=== PATIENT | male | born 1950 | race Hispanic/Latino ===

== ENCOUNTER → 2022-07-27 | Outpatient (CLI) | payer MEDICARE ==
[~2022-07-27] MED LIST: GADOTERATE MEGLUMINE 10 MMOL/20 ML VIAL IV ONE
== END | disposition home or self-care (01) ==
LOC: RAH 14:13
PROVIDERS: ATTEND Student in an Organized Health Care Education/Training Program
DX: M47.816 Spondylosis without myelopathy or radiculopathy, lumbar region (principal); M48.061 Spinal stenosis, lumbar region without neurogenic claudication; M41.86 Other forms of scoliosis, lumbar region; M51.26 Other intervertebral disc displacement, lumbar region
CPT/HCPCS: 72158; A9575

== ENCOUNTER 2022-09-07 11:00 | Observation (INO) | payer MEDICARE ==
[~2022-09-07] VITALS: Ht 170.2 cm; Wt 89.4 kg
[2022-09-07 13:17] LABS: BASOPHILS % (AUTO) 0.9 % (0.0-5.0); EOSINOPHILS % (AUTO) 1.7 % (0.0-8.0); HEMATOCRIT 43.6 % (42-54); LYMPHOCYTES % (AUTO) 40.9 % (21.0-51.0); MEAN CORPUSCULAR HEMOGLOBIN 29.7 pg (27.0-33.0); MEAN CORPUSCULAR HGB CONC 33.3 g/dL (32.0-36.0); MEAN CORPUSCULAR VOLUME 89.3 fL (79-99); MONOCYTES % (AUTO) 6.4 % (3.0-13.0); NEUTROPHILS % (AUTO) 49.9 % (40.0-77.0); PLATELET COUNT (AUTO) 248 K/uL (130-400); RED BLOOD CELL COUNT(AUTO) 4.88 MIL/uL (4.50-6.20); RED CELL DISTRIBUTION WIDTH 12.8 % (11.0-15.5); WHITE BLOOD COUNT (AUTO) 6.5 K/uL (4.8-10.8)
[2022-09-07 13:24] LABS: CREATININE 1.1 mg/dL (0.5-1.5); POTASSIUM 4.3 mmol/L (3.5-5.1)
[2022-09-07 13:25] VITALS: BP 143/78
[2022-09-07] MEDS ORDERED: DUTA0.5C37 PO (13:27)
[2022-09-07] MEDS ORDERED: GABA300C PO (13:27)
[2022-09-07] MEDS ORDERED: TAMS-1 PO (13:27)
[2022-09-09] VITALS (25 sets, daily range): BP systolic 108–135; BP diastolic 59–77
[2022-09-09] MEDS ORDERED: DEXAMETHASONE SOD PHOSPHATE 10MG/ML 1ML VIAL ONE ×2 (07:01→07:08)
[2022-09-09] MEDS ORDERED: SUCCINYLCHOLINE 200MG/10ML SYR ONE (07:01)
[2022-09-09] MEDS ORDERED: LIDOCAINE PF 100MG/5ML (2%) SYRINGE 5ML ONE (07:01)
[2022-09-09] MEDS ORDERED: NEOSTIGMINE 5MG/5ML SYR IV ONE (07:02)
[2022-09-09] MEDS ORDERED: MIDAZOLAM HCL 1 MG/ML 2ML VIAL ONE ×2 (07:02→08:14)
[2022-09-09] MEDS ORDERED: ONDANSETRON 4MG INJ ONE ×2 (07:02→07:09)
[2022-09-09] MEDS ORDERED: ROCURONIUM 10MG/1ML SYR 10 MG/ML ML ONE ×2 (07:02→09:41)
[2022-09-09] MEDS ORDERED: GLYCOPYRROLATE 1 MG/5 ML SYRINGE ONE (07:02)
[2022-09-09] MEDS ORDERED: PROPOFOL 10 MG/ML 20ML VIAL IV ONE (07:02)
[2022-09-09] MEDS ORDERED: FENTANYL CITRATE PF 50 MCG/1 ML 2ML VIAL ONE ×3 (07:03→12:37)
[2022-09-09] MEDS ORDERED: LACTATED RINGERS 1000ML 1,000 ML IV ONE (07:04)
[2022-09-09] MEDS ORDERED: CEFAZOLIN SODIUM 2 GM VIAL ONE (07:04)
[2022-09-09] MEDS ORDERED: OXYMETAZOLINE HCL SPRAY 15 ML BOTTLE ONE (07:06)
[2022-09-09] MEDS ORDERED: ARTIFICIAL TEARS 3.5 GM OINTMENT ONE (07:09)
[2022-09-09] MEDS ORDERED: CEFAZOLIN SODIUM 1 GM VIAL ONE ×2 (07:13→12:25)
[2022-09-09] MEDS ORDERED: MORPHINE PF 100MG/10ML AMP IV ONE (07:14)
[2022-09-09] MEDS ORDERED: THROMBIN-JMI 20000 UNIT KIT TP ONE (07:14)
[2022-09-09] MEDS ORDERED: CEFAZOLIN SODIUM 2 GM VIAL IVPB ONE (09:00)
[2022-09-09] MEDS: BUPIVACAINE/EPI/PF 0.25% 30ML VIAL IJ SCH ×2 (09:32→14:43)
[2022-09-09] MEDS ORDERED: PHENYLEPHRINE HCL 10 MG/ML 1ML VIAL IV ONE ×2 (10:38→10:40)
[2022-09-09] MEDS ORDERED: GENTAMICIN SULFATE 80 MG/2 ML VIAL ONE (11:15)
[2022-09-09] MEDS ORDERED: GENTAMICIN SULFATE 80 MG/2 ML VIAL IM ONE (11:20)
[2022-09-09] MEDS: CEFAZOLIN SODIUM 1 GM VIAL IVPB SCH ×2 (13:30→19:38)
[2022-09-09] MEDS: LACTATED RINGERS 1000ML 1,000 ML IV SCH (13:30)
[2022-09-09] MEDS ORDERED: MORPHINE 2 MG SYG IVP PRN (13:30)
[2022-09-09] MEDS ORDERED: HYDROCODONE/ACETAMINOPHEN 5/325 MG TAB PO PRN (13:30)
[2022-09-09] MEDS ORDERED: 0.9%NACL 10ML VIAL IVP PRN (13:30)
[2022-09-09] MEDS ORDERED: PROMETHAZINE HCL 25 MG/ML 1ML AMPULE IM PRN (13:30)
[2022-09-09] MEDS: DEXAMETHASONE SOD PHOSPHATE 4 MG/ML 1ML VIAL IVP SCH ×2 (13:30→19:37)
[2022-09-09] MEDS ORDERED: MEPERIDINE-PF 25 MG/ML SYG ONE ×2 (13:49→14:04)
[2022-09-09] MEDS ORDERED: FINASTERIDE 5 MG TABLET PO SCH (21:00)
[2022-09-09] MEDS ORDERED: TAMSULOSIN HCL 0.4 MG CAP.ER.24H PO SCH (21:00)
[2022-09-09] MEDS ORDERED: GABAPENTIN 300 MG CAPSULE PO SCH (21:00)
[2022-09-10] MEDS: DEXAMETHASONE SOD PHOSPHATE 4 MG/ML 1ML VIAL IVP SCH ×2 (00:55→08:14)
[2022-09-10] MEDS: LACTATED RINGERS 1000ML 1,000 ML IV SCH (02:50)
[2022-09-10] MEDS: CEFAZOLIN SODIUM 1 GM VIAL IVPB SCH ×2 (04:31→13:30)
[2022-09-10 05:39] VITALS: BP 114/64
[2022-09-10 08:00] VITALS: BP 103/55
[2022-09-10] MEDS ORDERED: TAMSULOSIN HCL 0.4 MG CAP.ER.24H PO SCH (10:30)
[2022-09-10] MEDS ORDERED: LIDOCAINE HCL 2% PF 20 ML JEL DISP.SYRIN MM ONE (11:35)
== END 2022-09-10 15:20 | disposition home or self-care (01) ==
LOC: DAHIP 09-09 06:21 → EDSTATUS 09-09 12:00 → 4BH 09-09 14:09
PROVIDERS: ADMIT Neurological Surgery; ATTEND Neurological Surgery
DX: M48.07 Spinal stenosis, lumbosacral region (principal); Z20.822 Contact with and (suspected) exposure to COVID-19; E78.5 Hyperlipidemia, unspecified; Z79.899 Other long term (current) drug therapy
CPT/HCPCS: 80048; 85025; 87426; 36415; 71045; 63047; 63048 ×4; 96365; 96375; 72020; 96376; A6260; J1100 ×5; G0378 ×26; A4663 ×2; J7120 ×2; A4344; J3010 ×3; J0690 ×5; J0330; J3490 ×2; J2710; J2001; J1580 ×2; J2250 ×2; J2704; J2274; J2405 ×2; J2175 ×2; J2370 ×2; A4649; A4215; A4223; A4222; A4221; A4600

== ENCOUNTER → 2022-11-26 | Outpatient (CLI) | payer MEDICARE ==
[~2022-11-26] MED LIST changes: +DUTA0.5C37 PO; +GABA300C PO; -GADOTERATE MEGLUMINE 10 MMOL/20 ML VIAL IV ONE; +TAMS-1 PO
== END | disposition home or self-care (01) ==
LOC: RAH 11:18
PROVIDERS: ATTEND Physical Medicine & Rehabilitation
DX: M47.817 Spondylosis without myelopathy or radiculopathy, lumbosacral region (principal); M48.07 Spinal stenosis, lumbosacral region; Z98.890 Other specified postprocedural states
CPT/HCPCS: 72170; 73522

== ENCOUNTER → 2022-12-30 | Outpatient (CLI) | payer MEDICARE ==
[2022-12-30 17:31] LABS: CREATININE 0.9 mg/dL (0.5-1.5)
== END | disposition home or self-care (01) ==
LOC: LAB 16:58
PROVIDERS: ATTEND Neurological Surgery
DX: M48.062 Spinal stenosis, lumbar region with neurogenic claudication (principal)
CPT/HCPCS: 36415; 82565; 84520

== ENCOUNTER → 2023-01-04 | Outpatient (CLI) | payer MEDICARE ==
[~2023-01-04] MED LIST changes: +GADOTERATE MEGLUMINE 10 MMOL/20 ML VIAL IV ONE
== END | disposition home or self-care (01) ==
LOC: RAH 15:01
PROVIDERS: ATTEND Neurological Surgery
DX: M47.817 Spondylosis without myelopathy or radiculopathy, lumbosacral region (principal); M48.062 Spinal stenosis, lumbar region with neurogenic claudication; M51.37 Other intervertebral disc degeneration, lumbosacral region; Z98.890 Other specified postprocedural states
CPT/HCPCS: 72158; A9575

== ENCOUNTER → 2023-05-05 | Outpatient (CLI) | payer MEDICARE ==
[~2023-05-05] MED LIST changes: -GADOTERATE MEGLUMINE 10 MMOL/20 ML VIAL IV ONE
== END | disposition home or self-care (01) ==
LOC: RAH 10:34
PROVIDERS: ATTEND Physical Medicine & Rehabilitation
DX: M47.26 Other spondylosis with radiculopathy, lumbar region (principal); M71.38 Other bursal cyst, other site; M48.061 Spinal stenosis, lumbar region without neurogenic claudication; M25.70 Osteophyte, unspecified joint
CPT/HCPCS: 72114

== ENCOUNTER → 2024-08-15 | Outpatient (CLI) | payer MEDICARE ==
[~2024-08-15] MED LIST changes: +GADOTERATE MEGLUMINE 10 MMOL/20 ML VIAL IV ONE; -TAMS-1 PO; +TAMS-55 PO
--- NOTE | 2024-08-15 15:23 | HMCIMG ---
Dj Exam Type: MR SPINAL CANAL, LUMBAR WO CON Clinical Information: RADICULOPATHY LUMBAR REGION Comparison: None Findings: Moderate to severe spondylitic changes with multilevel Modic endplate type degenerative changes. Disc protrusions at all level causing neural foramina narrowing and nerve root impingement bilaterally at all levels. No acute fractures or dislocations. Spasm. IMPRESSION: Extensive degenerative changes.
--- NOTE | 2024-08-15 16:15 | HMCIMG ---
Findings: There is normal alignment of the vertebral bodies. There are no fractures. There is facet hypertrophy. There are spondylitic changes. There are no large bulges or herniations. The prevertebral soft tissues are normal. IMPRESSION: Degenerative changes as noted.
== END | disposition home or self-care (01) ==
LOC: RAH 14:28
PROVIDERS: ATTEND Physical Medicine & Rehabilitation
DX: M47.26 Other spondylosis with radiculopathy, lumbar region (principal); M51.16 Intervertebral disc disorders with radiculopathy, lumbar region; M48.061 Spinal stenosis, lumbar region without neurogenic claudication; M46.96 Unspecified inflammatory spondylopathy, lumbar region
CPT/HCPCS: 72148; 72131; A9575

== ENCOUNTER 2024-12-12 15:27 | Observation (INO) | payer MEDICARE ==
[~2024-12-12] VITALS: Ht 170.2 cm; Wt 80.6 kg
[~2024-12-12 15:27] MED LIST changes: -RIVA15TA PO; -RIVA20TA PO
--- NOTE | 2024-12-12 15:55 | ERN ---
ED Note History of Present Illness Stated Complaint: DVT Chief Complaint: Lower Extremity Pain/Injury Time Seen by MD: 15:34 Dictation: PATIENT IS A 74-YEAR-OLD MALE COMING IN TODAY WITH COMPLAINTS OF SWELLING TO THE RIGHT LOWER EXTREMITIES HAD FOR TWO DAYS. NO CLAUDICATION, NO FEVER NO CHILLS NO ERYTHEMA. SAW /[employer] WITH THE ULTRASOUND PERFORMED A DEMONSTRATES A DVT IN THE POPLITEAL VEIN ONLY. DISTAL NEUROVASCULAR CMS INTACT. Allergies: Coded Allergies: No Known Drug Allergies (Unverified Allergy, Unknown, 09/07/22) Home Meds Reported Medications Dutasteride (Dutasteride) 0.5 Mg Capsule, 0.5 MG PO HS, CAP 09/07/22 Tamsulosin HCl (Flomax) 0.4 Mg Cap.er.24h, 0.4 MG PO HS, CAPSULE. 09/07/22 Gabapentin (Neurontin) 300 Mg Capsule, 300 MG PO HS, CAP 09/07/22 Past Medical History Past Medical History: Other Additional Past Medical Hx: BPH Surgical History: None Surgical History Other: INGUINAL HERNIA REPAIR,BPH RN Note Reviewed/Agreed w/PFSH: Yes Review of System Dictation CONSTITUTIONAL: NEGATIVE EXCEPT FOR HPI HEAD/FACE: NEGATIVE EXCEPT FOR HPI EENT: NEGATIVE EXCEPT FOR HPI RESPIRATORY: NEGATIVE EXCEPT FOR HPI GASTROINTESTINAL/ABDOMINAL: NEGATIVE EXCEPT FOR HPI GENITOURINARY: NEGATIVE EXCEPT FOR HPI MUSCULOSKELETAL: NEGATIVE EXCEPT FOR HPI RIGHT LOWER EXTREMITY SWELLING INTEGUMENTARY: NEGATIVE EXCEPT FOR HPI NEUROLOGICAL/PSYCH: NEGATIVE EXCEPT FOR HPI HEMATOLOGIC/LYMPHATIC: NEGATIVE EXCEPT FOR HPI ALL SYSTEMS NEGATIVE, EXCEPT NOTED ABOVE. 13 POINT REVIEW OF SYSTEMS ASSESSED AND ALL NEGATIVE EXCEPT FOR ABOVE. Initial Vital Sign VS Vital Signs Date Time Temp Pulse Resp B/P (MAP) Pulse Ox O2 Delivery O2 Flow Rate FiO2 12/12/24 15:29 98.8 67 18 117/85 98 Room Air 0 Physical Exam Dictation VITAL SIGNS REVIEWED GENERAL APPEARANCE: ALERT, ORIENTED X 3, NO ACUTE DISTRESS, WELL DEVELOPED, NOURISHED. HEAD AND FACE: NON-TRAUMATIC. EYES: PERRL, PINK CONJUNCTIVAS, EYELID NO TRAUMA, ANTERIOR CHAMBER WITH ARCUS SENILIS. EARS: PINNAS INTACT AND NO SIGNS OF TRAUMA OR ERYTHEMA EAR CANALS CLEAR AND NO DISCHARGE TM NO ERYTHEMA NOSE: NO DISCHARGE, NO BLEEDING. OROPHARYNX: MOUTH NORMAL, TONGUE PINK, PHARYNX CLEAR,NO ERYTHEMA, TONSILS NO EXUDATES, NO ABSCESSES NOTED, MUCOUS MEMBRANE MOIST NECK: SUPPLE, NON-TENDER, NO THYROMEGALY, NO MASSES, NO JVD, NO BRUITS BREAST:DEFERRED CHEST:NO TENDERNESS, NO CREPITUS, NO PARADOXICAL MOVEMENT, NO RETRACTIONS LUNGS:CLEAR, WELL-VENTILATED, SYMMETRIC, NO RALES, NO WHEEZING, NO RHONCHI, NO STRIDOR, GOOD BREATH SOUNDS BILATERALLY HEART: REGULAR RATE, REGULAR RHYTHM, NO MURMUR, NO GALLOPS VASCULAR: NO PERIPHERAL EDEMA, ABDOMEN: SOFT, POSITIVE BOWEL SOUNDS, NONDISTENDED, NO GUARDING, NONTENDER, NO REBOUND, NO MASSES NO HEPATOMEGALY, NO SPLENOMEGALY, NO KATZ'S SIGN, NO HERNIAS. RECTAL: DEFERRED GENITAL: DEFERRED NEUROLOGICAL: NORMAL SPEECH, MOTOR FUNCTION INTACT, SENSORY FUNCTION INTACT MUSCULOSKELETAL: NECK NONTENDER, FULL RANGE OF MOTION, BACK NONTENDER, FULL RANGE OF MOTION, EXTREMITIES: NONTENDER, FULL RANGE OF MOTION SKIN: COLOR PINK, DRY, NO TURGOR, NO RASH, NO LACERATIONS, NO ABRASIONS, NO CONTUSIONS. LYMPHATIC: DEFERRED VITAL SIGNS REVIEWED GENERAL APPEARANCE: ALERT, ORIENTED X 3, NO ACUTE DISTRESS, WELL DEVELOPED, NOURISHED. HEAD AND FACE: NON-TRAUMATIC. EYES: PERRL, PINK CONJUNCTIVAS, EYELID NO TRAUMA, ANTERIOR CHAMBER WITH ARCUS SENILIS. EARS: PINNAS INTACT AND NO SIGNS OF TRAUMA OR ERYTHEMA EAR CANALS CLEAR AND NO DISCHARGE TM NO ERYTHEMA NOSE: NO DISCHARGE, NO BLEEDING. OROPHARYNX: MOUTH NORMAL, TONGUE PINK, PHARYNX CLEAR,NO ERYTHEMA, TONSILS NO EXUDATES, NO ABSCESSES NOTED, MUCOUS MEMBRANE MOIST NECK: SUPPLE, NON-TENDER, NO THYROMEGALY, NO MASSES, NO JVD, NO BRUITS BREAST:DEFERRED CHEST:NO TENDERNESS, NO CREPITUS, NO PARADOXICAL MOVEMENT, NO RETRACTIONS LUNGS:CLEAR, WELL-VENTILATED, SYMMETRIC, NO RALES, NO WHEEZING, NO RHONCHI, NO STRIDOR, GOOD BREATH SOUNDS BILATERALLY HEART: REGULAR RATE, REGULAR RHYTHM, NO MURMUR, NO GALLOPS VASCULAR: NO PERIPHERAL EDEMA, ABDOMEN: SOFT, POSITIVE BOWEL SOUNDS, NONDISTENDED, NO GUARDING, NONTENDER, NO REBOUND, NO MASSES NO HEPATOMEGALY, NO SPLENOMEGALY, NO KATZ'S SIGN, NO HERNIAS. RECTAL: DEFERRED GENITAL: DEFERRED NEUROLOGICAL: NORMAL SPEECH, MOTOR FUNCTION INTACT, SENSORY FUNCTION INTACT MUSCULOSKELETAL: NECK NONTENDER, FULL RANGE OF MOTION, BACK NONTENDER, FULL RANGE OF MOTION, EXTREMITIES: MILD SWELLING TO RIGHT LEG FROM KNEE DOWN. NEGATIVE HOMANS SIGN DISTAL NEUROVASCULAR CMS INTACT. NO ERYTHEMA SKIN: COLOR PINK, DRY, NO TURGOR, NO RASH, NO LACERATIONS, NO ABRASIONS, NO CONTUSIONS. LYMPHATIC: DEFERRED Results (Laboratory/Radiology) Laboratory/Radiology ULTRASOUND DOPPLER TODAY PERFORMED DEMONSTRATES POPLITEAL VEIN DVT NEGATIVE CFV AND SFV Labs Reviewed?: Yes ED Course ED Course Orders Procedure Category Date Status Time Pt And Ptt LAB 12/12/24 Verified 16:09 Cbc With Differential LAB 12/12/24 Verified 16:09 Comprehensive LAB 12/12/24 Verified Metabolic Panel 16:09 Magnesium LAB 12/12/24 Verified 16:09 Initiate Heparin SUDHEER 12/12/24 Verified Treatment Pro 16:09 Heparin PHA 12/12/24 Verified 5000unit/Ml(Bolus) 17:00 Heparin PHA 12/12/24 Verified 25,000units/250ml-Drip 17:00 Heparin Protocol CPOE 12/12/24 Verified Monitoring 16:09 Edm Admit Bridge Order ADM 12/12/24 Verified 16:09 Vital Signs Date Time Temp Pulse Resp B/P (MAP) Pulse Ox O2 Delivery O2 Flow Rate FiO2 12/12/24 15:29 98.8 67 18 117/85 98 Room Air 0 1610/SPOKE WITH PATIENT AND HE IS AWARE THAT [employer] LIKE HIM ADMITTED AND PLACED ON HEPARIN DRIP. HE AGREED TO STAY. DISTAL NEUROVASCULAR CMS INTACT. DR ROSENBERG REVIEWED LABS AND AGREED TO ADMIT. Medical Decision Making MDM MDM: DIFFERENTIAL DIAGNOSIS: DVT DVT/SWELLING/MUSCULOSKELETAL PAIN/ELECTROLYTE IMBALANCE/DEHYDRATION RATIONALE: TESTS CONSIDERED AND ORDERED SECONDARY TO SHARED DECISION MAKING INCLUDE: LABS, AND RADIOLOGY PREVIOUS OUTSIDE RECORDS REVIEWED: OLD ER VISITS. RISK OF COMPLICATION AND/OR MORBIDITY OR MORTALITY OF PATIENT MANAGEMENT: NONE MEDICATIONS-PER MEDICATION RECONCILIATION NEED FOR HOSPITALIZATION: PATIENT DOES MEET CRITERIA FOR HOSPITALIZATION. HEPARINIZATION NEED FOR EMERGENCY MAJOR/MINOR SURGERY: NO THERE ARE NO SOCIAL CONCERNS WITH THIS PATIENT. PRESCRIPTION DRUG MANAGEMENT PRESCRIPTIONS WILL INCLUDE SYMPTOMATIC CARE PATIENT'S PRIOR EXTERNAL MEDICAL RECORDS FROM OTHER ER VISITS WERE REVIEWED BY ME INDICATED. PRIOR TESTING AND RESULTS FROM PREVIOUS VISITS WERE REVIEWED. PRIOR TESTS WERE TAKEN INTO ACCOUNT WITH MEDICAL DECISION MAKING AND RESOURCE UTILIZATION, INDEPENDENT HISTORIAN/HISTORIANS WERE USED TO OBTAIN COMPLETE MEDICAL HISTORY. I INDEPENDENTLY INTERPRETED THE TEST THAT WERE PERFORMED, RESULTS WERE REVIEWED BY ME AND CONSIDERED FINDINGS ON RADIOLOGY IF ORDERED. MEDICAL MANAGEMENT AND EXAMINATION INTERPRETATION DISCUSSIONS WERE HAD BY ME WITH OTHER QUALIFIED HEALTHCARE PROFESSIONALS INDICATED FOR THE PATIENT'S CARE. DX & DISP Disposition: Inpatient Decision to Admit Time: 16:13 Departure Impression: Primary Impression: Deep vein thrombosis (DVT) of popliteal vein of right lower extremity Condition: Stable Referrals: CECI RINALDI MD (PCP) Time of Disposition: 16:13 I have reviewed the case, and I agree with, Diagnosis and Plan BETTY MENENDEZ NP Dec 12, 2024 15:55
[2024-12-12] MEDS: 0.9%NACL 1000ML 1,000 ML IV SCH (16:30)
--- NOTE | 2024-12-12 16:49 | HP ---
[facility] HISTORY AND PHYSICAL Date of Service: Dec 12, 2024 Time of Service: 16:38 HISTORY OF PRESENT ILLNESS: Date of service: 12/12/2024, patient was seen in ER room 14 74-year-old male with history of chronic lower back pain with history of lumbar spinal stenosis, history of BPH who presented to the ER for further evaluation of progressive swelling of the right lower extremity. Symptoms have been on going for the past 4-5 days. Patient denies any trauma, injury to the right leg. Denies history of malignancy. Denies previous history of blood clot. He has mild pain of the right lower extremity. Denies any fevers or chills. Patient was seen by his executive associate today and underwent a venous Doppler to rule out DVT, patient was found to have deep vein thrombosis involving the right popliteal vein. Reports having history of chronic back pain for which he takes Lyrica daily. He has been using a wedge compression pillow between his legs while sleeping which he thinks may have contributed towards the popliteal vein DVT. Patient denies any bleeding disorder. Denies any falls or syncopal episodes. Denies any family history of malignancy. Denies any underlying cardiac history otherwise. Patient denies any shortness of breath or pleurisy. He does have chronic cough denies any fevers or chills. Results of right popliteal vein DVT was discussed by ER provider with Dr. Perez recommendations for patient to be started on anticoagulation with IV heparin drip. Patient will be admitted under hospitalist service and will be monitored cl osely. We will keep patient on anticoagulation with IV heparin, and if remains hemodynamically stable, we will consider transition to either oral Eliquis or Xarelto tomorrow with possible discharge. Patient states that he would like to be discharged by tomorrow if able. REVIEW OF SYSTEMS CONSTITUTIONAL: Denies fevers, chills, or night sweats. No unintentional weight loss reported. NEUROLOGICAL: Denies headache, amaurosis fugax, motor weakness, sensory deficit, vertigo/spinning sensation, gait abnormalities, or tremors. ENT: No hearing loss, otalgia, otorrhea, rhinitis, rhinorrhea, hoarseness, or sore throat. CARDIOVASCULAR: Denies any exertional angina, dyspnea on exertion, orthopnea, paroxysmal nocturnal dyspnea, palpitations, life-threatening arrhythmias, carlito dication. PULMONARY: Denies any shortness of breath, cough, phlegm/sputum, hemoptysis, pleuritic chest pain. SLEEP: Denies morning headaches, daytime somnolence or napping. Denies difficulty falling asleep, staying asleep, waking from sleep. Denies knowledge of snoring. GASTROINTESTINAL: Denies any type of dysphagia to either liquids or solids. Denies nausea, vomiting, pyrosis, early satiety, abdominal pain, diarrhea, constipation, or changes in stool consistency or caliber. Denies coffee-ground emesis, hematemesis, hematochezia, or melanotic stools. GENITOURINARY: Denies frequency, urgency, nocturia, hematuria or incontinence (Storage/Irritative symptoms.) Low urinary stream, straining to void, urinary intermittency or hesitancy, splitting of the voiding stream, terminal dribbling. ENDOCRINOLOGIC: Denies polyuria, polydipsia, polyphagia or heat/cold intolerances. HEMATOLOGIC: Denies thrombophilia/previous clots, or coagulopathy/bleeding disorders. ONCOLOGIC: Denies personal history of malignancy. DERMATOLOGIC: reports having swelling to the Right lower extremity PSYCHIATRIC: Denies any suicidal or homicidal ideation. Denies hallucinations. PAST MEDICAL HISTORY: History of chronic lower back pain with history of lumbar stenosis, BPH PAST SURGICAL HISTORY: History of inguinal hernia repair, history of Lumbar laminectomy, L2, L3, L4, L5 with bilateral neural foraminotomy, L2-3, L3-4, L4-5, L5-S1 by Dr. Roach PAST SOCIAL HISTORY: Denies active smoking or alcohol consumption, patient is a physician FAMILY HISTORY: Pertinent family history Allergies: No known drug allergies Home medications: Patient will be bringing list of home medications, reports being on Lyrica, Flomax, dutasteride Coded Allergies: No Known Drug Allergies (Unverified Allergy, Unknown, 09/07/22) PHYSICAL EXAM GENERAL APPEARANCE: The patient is awake, alert, and oriented, in no acute cardiopulmonary distress. NEUROLOGICAL: Cranial nerves II-XII grossly intact. Motor is 5/5 in bilateral upper and lower extremities proximal to distal. No sensory deficits. HEENT: Face is symmetric. Pupils are equal and reactive. Extraocular movements are intact. NECK: Supple. No JVD. No thyromegaly. No submental, submandibular, pre- /postauricular, occipital or supraclavicular lymphadenopathy. CHEST: Normal chest expansion. No Telemetry. LUNGS: Absence of any rales, rhonchi or any wheezing. CARDIOVASCULAR: Regular. S1 and S2 normal. No appreciable rubs, murmurs or gallops. ABDOMEN: Soft, nontender, and nondistended. There is no rebound, voluntary guarding, or rigidity. : Deferred. No Erickson. EXTREMITIES: Right leg is swollen with mild erythema noted, 1 + pitting edema Vital Sign (Last 24 Hours) 12/12/24 15:29 Temp 98.8 Pulse 67 Resp 18 B/P (MAP) 117/85 Pulse Ox 98 O2 Delivery Room Air O2 Flow Rate 0 LABS: Labs including CBC count CMP, magnesium is pending Current Medications Medications (Trade) Dose Ordered Sig/Wilfrid Route PRN Reason Start Time Stop Time Status Last Admin Dose Admin Acetaminophen (TYLenol 325MG TAB) 650 mg Q6H PRN PO MILD PAIN (1-3) 12/12/24 16:30 01/11/25 16:29 Famotidine (Pepcid 20mg Vial) 20 mg BID IV 12/12/24 21:00 01/11/25 20:59 Heparin Sodium (Porcine) (HEParin 5,000 UNIT VIAL) *calculation based on ACTUAL B... AD PRN IV HEPARIN PROTOCOL 12/12/24 17:00 01/11/25 16:59 Heparin Sodium/ Dextrose 250 ml @ 0 mls/hr Q6H IV 12/12/24 17:00 01/11/25 16:59 Ondansetron HCl (zoFRAN 4MG INJ) 4 mg Q6H PRN IVP NAUSEA/VOMITING 12/12/24 16:30 01/11/25 16:29 Sodium Chloride 1,000 ml @ 50 mls/hr Q20H IV 12/12/24 16:30 01/11/25 16:29 DIAGNOSTICS / RADIOLOGY: SERVICE REASON: LEG SWELLING ORDERING PHYSICIAN: CECI RINALDI MD PROCEDURE: VENOUS HOSSEIN - US VENOUS DOPPLER BILATERAL US VENOUS DOPPLER BILATERAL REASON: LEG SWELLING COMPARISON: None Technique: Bilateral venous doppler ultrasound was performed with spectral analysis and color flow imaging technique. FINDINGS: There is a deep vein thrombosis involving the right popliteal vein. There is a normal appearance of the common femoral, deep femoral, the profunda femoris and left popliteal veins. Proximal calf veins appear normal as well. There is normal response to compression and augmentation. There is no evidence of deep venous thrombosis. IMPRESSION: Deep vein thrombosis of the right popliteal vein The remaining right lower extremity has no other clot seen The left leg has no evidence of deep vein thrombosis. DICTATED BY: CHINO CAIN MD DATE: 12/12/241539 ELECTRONICALLY SIGNED BY: CHINO CAIN MD DATE: 12/12/241543 ASSESSMENT: Acute DVT involving the popliteal vein of the right lower extremity, POA History of lumbar spinal stenosis with chronic lower back pain, POA BPH, POA PLAN: Patient will be admitted to medical-surgical floor under telemetry monitoring Patient will be started on IV anticoagulation with heparin drip We will monitor closely for any bleeding while patient remains on IV anticoagulation We will have Cardiology follow up with the patient in the morning Patient denies any history of long travel, significant trauma to the right lower extremity, or history of malignancy, patient thinks that he has been using wedge pillow at night for management of chronic back pain which may have contributed towards to be DVT, patient may benefit from Hematology evaluation as outpatient for thrombophilia workup and continue with routine preventative screening. R eports having had colonoscopy previously and was recommended routine surveillance otherwise. Patient to continue with home dose of Lyrica as well as Flomax, dutasteride All labs will be repeated in the morning Patient wants to see if we can be discharged tomorrow, if patient remains stable tonight and blood count remained stable, we can consider transition to either oral anticoagulation with Eliquis or Xarelto and anticipate discharge tomorrow, we will see how patient clinically progresses tonight and tomorrow, will have cardiology follow up with patient tomorrow Date of service: 12/12/2024 Plan of care was discussed with patient at bedside, Hammad Frankel MD Advanced Care Planning: Which of the following were discussed: Hospice care: Yes __ No _X_ Therapeutic options: Yes _X_ No __ Advance directives: Yes _X_ No __ Other discussions: Discussed with who?: Patient Voluntary nature of this service was explained to the patient? Yes _x_ No __ Amount of time spent: 20 minutes HAMMAD FRANKEL MD Dec 12, 2024 16:49
[2024-12-12 17:13] LABS: IMMATURE GRANULOCYTE ABSOLUTE 0.06 K/uL (0-1); NUCLEATED RED BLOOD CELLS 0.0 % (0.0-0.19); PLATELET COUNT (AUTO) 256 K/uL (130-400); RED BLOOD CELL COUNT(AUTO) 4.62 MIL/uL (4.50-6.20); RED CELL DISTRIBUTION WIDTH 12.7 % (11.0-15.5); WHITE BLOOD COUNT (AUTO) 7.4 K/uL (4.8-10.8)
[2024-12-12 17:21] LABS: INR 1.05 (0.85-1.15)
[2024-12-12 17:27] LABS: ASPARTATE AMINOTRANSFERASE 18.0 U/L (10-37); CREATININE 1.0 mg/dL (0.5-1.3); GLOMERULAR FILTR. RATE CALC 79.0 mL/min (>90); GLUCOSE,RANDOM 90.0 mg/dL (70-105); SODIUM SERUM 139.0 mmol/L (136-145); TOTAL PROTEIN, SERUM 7.3 g/dL (6.0-8.3); UREA NITROGEN, BLOOD 22.0 mg/dL (7-18)
--- NOTE | 2024-12-12 17:50 | NUR ---
HEPARIN INFUSION STARTED PER PROTOCOL
--- NOTE | 2024-12-12 18:27 | HMCIMG ---
EXAM: CR Chest, 1 View. CLINICAL HISTORY: r/o any significant infiltrates COMPARISON: None provided. FINDINGS: LUNGS: There is no mass, infiltrate, or acute pulmonary abnormality. PLEURAL SPACES: No evidence of pleural effusion or pneumothorax. MEDIASTINUM: The cardiomediastinal silhouette is within normal limits. BONES: No acute osseous abnormality. IMPRESSION: No acute cardiopulmonary pathology is evident. /[place]
--- NOTE | 2024-12-12 18:29 | NUR ---
PT DECLINED IV FLUIDS,HE'D RATHER DRINK.DR NOBLE AWARE
[2024-12-12 21:15] VITALS: BP 135/80; PULSE 66; RESP 20; TEMP 98.5
[2024-12-12 22:05] VITALS: O2SAT 98
[2024-12-12] MEDS: FAMOTIDINE 20MG VIAL IV SCH (22:27)
[2024-12-12 23:25] VITALS: BP 120/74; PULSE 61; RESP 20; TEMP 97.8
[2024-12-12 23:31] LABS: INR 1.06 (0.85-1.15)
[2024-12-13 03:33] VITALS: BP 125/69; PULSE 64; RESP 21; TEMP 97.5
[2024-12-13 06:38] LABS: NUCLEATED RED BLOOD CELLS 0.0 % (0.0-0.19); PLATELET COUNT (AUTO) 250.0 K/uL (130-400); RED BLOOD CELL COUNT(AUTO) 4.39 MIL/uL (4.50-6.20); RED CELL DISTRIBUTION WIDTH 12.7 % (11.0-15.5); WHITE BLOOD COUNT (AUTO) 6.3 K/uL (4.8-10.8)
[2024-12-13 06:50] LABS: CREATININE 0.9 mg/dL (0.5-1.3); GLOMERULAR FILTR. RATE CALC 90.0 mL/min (>90); GLUCOSE,RANDOM 102.0 mg/dL (70-105); SODIUM SERUM 139.0 mmol/L (136-145); UREA NITROGEN, BLOOD 17.0 mg/dL (7-18)
[2024-12-13 07:00] VITALS: BP 129/73; PULSE 63; RESP 18; TEMP 97.4; O2SAT 98
--- NOTE | 2024-12-13 07:00 | NUR ---
BEDSIDE REPORT OBTAINED AND PATIENT IN NO DISTRESS. VOICES THAT HE IS COMFORTABLE. AWAKE, ALERT, ORIENTED TO TIME, PLACE, PERSON AND SITUATION. CALL SCHNEIDER UNDER RIGHT HAND AND BED ALARM SET. ADVISED TO CALL HOSPITAL PERSONNEL FOR ANY NEEDS.
--- NOTE | 2024-12-13 08:00 | NUR ---
PATIENT VOICING THAT HE WANTS TO LEAVE THE HOSPITAL "NOTHING IS BEING DONE HERE." I INSTRUCTED THE PATIENT THAT HE IS RECEIVING A POTENT MEDICATION, HEPARIN INTRAVENOUSLY, WHICH HAS RESULTED IN HIM REQUIRING PTT LEVELS TO BE DRAWN EVERY SIX HOURS UNTIL THE HEPARIN AND PTT ARE AT THERAPEUTIC LEVELS. I ALSO ADVISED THE PATIENT THAT I WILL CONTACT ADMITTING MD SO THAT RISKS AND BENEFITS OF THERAPY CAN BE DISCUSSED. PATIENT AGREED TO WAIT UNTIL SEEN BY MD.
--- NOTE | 2024-12-13 09:55 | NUR ---
PATIENT STATING THAT "HE WANTS TO BE DISCHARGED OR WILL JUST HAVE TO LEAVE ON HIS OWN," AND THAT HE "WILL BE WILLING TO TAKE ALL RISKS IN GOING HOME FROM HOSPITAL TODAY VERSUS WAITING, BECAUSE HE HAS A TRIP TO [place] PLANNED IN THE NEXT WEEK AND DID NOT HAVE TIME FOR ANY OF THIS". HE FURTHER STATED "PEOPLE JUST END UP SICKER BEING IN THE HOSPITAL ANYWAY." I CONTACTED DR LALO NOBLE (WHO HAD JUST ENTERED AN ORDER TO CONSULT DR VASQUEZ FOR HEMATOLOGY) AND PHYSICIAN STATED THAT CARE WAS ENDORSED TO DR CASAREZ, THE OTHER HOSPITALIST. I CONTACTED DR CASAREZ TO UPDATE HIM ON PATIENT'S PLAN TO LEAVE. HE STATED HE WOULD BE THERE IN A FEW MINUTES TO TALK WITH THE PATIENT PRIOR TO HIM GOING HOME.
--- NOTE | 2024-12-13 10:15 | NUR ---
DR. CASAREZ ARRIVED TO SEE THE PATIENT. HE DISCUSSED THE RISKS OF PATIENT LEAVING AND PATIENT STATED ONCE AGAIN THAT "I AM WILLING TO TAKE THOSE RISKS BECAUSE I DONT HAVE TIME FOR ANY OF THIS. I AM BASICALLY SITTING HERE HAVING NOTHING DONE." I ADVISED PATIENT THAT HEPARIN CURRENTLY INFUSING TO TREAT A CURRENT DIAGNOSIS OF RIGHT DEEP VENOUS THROMBOSIS AND THAT MEDICATION AND CONDITION PREDISPOSE PATIENT TO SEVERE ADVERSE REACTIONS OR POTENTIALLY FATAL BLEEDING UP AND INCLUDING BRAIN HEMORRHAGE. DR CASAREZ THEN DISCUSSED OTHER RISKS OF LEAVING AND DISCUSSED BENEFITS OF REMAINING ON HEPARIN TREATMENT INTRAVENOUSLY UNTIL PTT REACHES THERAPEUTIC RANGE ALONG WITH ADDITIONAL MEDICATIONS THAT CAN BE STARTED ALONGSIDE IT. DR CASAREZ AND I BOTH CONTINUED TO ADVISE PATIENT TO SEEK EMERGENCY ASSISTANCE IMMEDIATELY FOR AN INCREASE IN EDEMA TO LOWER EXTREMITIES, ANY NUMBNESS/TINGLING, LOSS OF SENSATION, LOSS OF PULSE OR INCREASING CALF PAIN. ALSO INSTRUCTED PATIENT TO SEEK EMERGENCY ASSISTANCE IMMEDIATELY FOR ANY/ALL SHORTNESS OF BREATH, RESTLESSNESS, CONFUSION, IMPENDING SENSE OF DOOM. PATIENT CONTINUES TO REFUSE TO REMAIN IN THE HOSPITAL AND IS REQUESTING THAT HE BE DISCHARGED. STATED "I HAVE ALREADY CONTACTED DR VASQUEZ MYSELF AND WILL GO TO HIS OFFICE TOMORROW. I WILL TAKE CARE OF THIS." I SPOKE WITH DR CASAREZ WHO WILL WRITE PATIENT PRESCRIPTION FOR XARELTO TO TAKE TO PHARMACY OF CHOICE, [facility] OR OTHER. ALSO STATES THAT HE IS GOING TO BE COMPLETING DISCHARGE VIA COMPUTER SOON POSSIBLE.
[2024-12-13] MEDS ORDERED: RIVA20TA PO (10:42)
[2024-12-13] MEDS ORDERED: RIVA15TA PO (10:42)
[2024-12-13 11:00] VITALS: BP 110/67; PULSE 61; RESP 20; TEMP 97.8
[2024-12-13 11:15] VITALS: O2SAT 98
--- NOTE | 2024-12-13 11:15 | NUR ---
I PROVIDED THE PATIENT WITH HIS DISCHARGE INSTRUCTIONS AND TAUGHT ON MEDICATION, XARELTO FOLLOWS: MEDICATION IS USED TO TREAT AND PREVENT BLOOD CLOTS. THE MOST SIGNIFICANT SIDE EFFECT IS INCREASED RISK OF BLEEDING, AND THIS CAN INCLUDE BRUISING EASILY, FAILURE TO STOP BLEEDING FROM CUTS, BLEEDING GUMS, NOSEBLEEDS, BLOOD IN URINE OR STOOL. SEVERE ABDOMINAL PAIN AND/OR VOMITING BLOOD OR EMESIS THAT APPEARS TO RESEMBLE COFFEE GROUNDS NEEDS TO BE REPORTED IMMEDIATELY TO MD/OR REPORT TO EMERGENCY SERVICES DEPARTMENT. ALSO INSTRUCTED THE PATIENT TO REPORT IMMEDIATELY TO MD/EMERGENCY SERVICES DEPARTMENT ANY BACK PAIN, DIZZINESS, HEADACHE, NUMBNESS, BOWEL AND/OR BLADDER DYSFUNCTION, WEAKNESS, FATIGUE, MUSCLE SPASMS, MUSCLE OR STOMACH PAIN. BLEEDING TO EYE, ANY CHANGES IN MOOD, ABILITY TO THINK CLEARLY, OR SUDDEN INABILITY TO MOVE ARM ALL OF WHICH CAN BE SIGNS/SYMPTOMS OF HEMORRHAGE. EMPHASIZED IMPORTANCE OF MAINTAINING SAFE ENVIRONMENT DUE TO INCREASED RISK OF BLEEDING INTO THE BRAIN: KEEP HOME/ROOM CLUTTER FREE AND WELL-LIT, AVOID RISING RAPIDLY FROM LYING TO STANDING. INSTRUCTED PATIENT ON REPORTING AN INCREASE IN EDEMA, WARMTH, NUMBNESS OR TINGLING, OR LOSS OF PULSES TO LOWER EXTREMITIES. ALSO INSTRUCTED ON SIGNS/SYMPTOMS OF PULMONARY EMBOLISM: INCREASE IN RESTLESSNESS, CHANGE IN MENTAL STATUS, DIFFICULTY BREATHING AND THAT HE NEEDS IMMEDIATE MEDICAL ATTENTION BY CALLING 911 SHOULD THESE OCCUR. INSTRUCTED PATIENT INSTEAD TO SIT UP IN BED FOR APPROXIMATELY 10 MINUTES, AND STAND UP SLOWLY USING AN ASSISTIVE DEVICE, SUCH A CANE OR WALKER, AND WAIT PRIOR TO AMBULATING TO PREVENT DIZZINESS,SYNCOPE AND OTHER INJURIES. 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 I HANDED PATIENT HIS WRITTEN PRESCRIPTION FOR XARELTO FOR WHICH HE STATED THAT HE WOULD ASSEMBLER RUBBER FOOTWEAR AT THIS PREFERRED PHARMACY, [facility]. THIS AFOREMENTIONED PRESCRIPTION WAS ALSO ELECTRONICALLY TRANSMITTED.
--- NOTE | 2024-12-13 11:20 | NUR ---
PERIPHERAL IV DISCONTINUED AND MANUAL PRESSURE APPLIED TO ANTECUBITAL REGION. PATIENT REFUSED TO LET ME HOLD PRESSURE PER STANDARDS OF CARE AND STATED "I WILL JUST HOLD IT MYSELF SO I CAN GET GOING." I APPLIED A TENSOPLAST PRESSURE DRESSING TO THE SITE THAT HE AGREED TO HAVE.
--- NOTE | 2024-12-13 11:30 | NUR ---
PATIENT REFUSED WHEELCHAIR TO ASSIST WITH DISCHARGE TO PERSONAL VEHICLE. STATED "IF I DONT START WALKING ON IT, I WILL NEVER GET BETTER." DENIES PAIN, SHORTNESS OF BREATH, OR OTHER DISCOMFORT. NO DISTRESS NOTED. AMBULATED WITH PATIENT AND WITNESSED GET IN TO A PERSONAL VEHICLE. VOICED NO COMPLAINTS OF DISCOMFORT.
--- NOTE | 2024-12-13 14:13 | DS ---
Discharge Summary Hospital Course Summary: The patient initially admitted to the hospital December 12, 2024 with the following history of the present illness: 74-year-old male with history of chronic lower back pain with history of lumbar spinal stenosis, history of BPH who presented to the ER for further evaluation of progressive swelling of the right lower extremity. Symptoms have been ongoing for the past 4-5 days. Patient denies any trauma, injury to the right leg. Denies history of malignancy. Denies previous history of blood clot. He has mild pain of the right lower extremity. Denies any fevers or chills. Patient was seen by his mold tooler today and underwent a venous Doppler to rule out DVT, patient was found to have deep vein thrombosis involving the right popliteal vein. Reports having history of chronic back pain for which he takes Lyrica daily. He has been using a wedge compression pillow between his legs while sleeping which he thinks may have contributed towards the popliteal vein DVT. Patient denies any bleeding disorder. Denies any falls or syncopal episodes. Denies any family history of malignancy. Denies any underlying cardiac history otherwise. Patient denies any shortness of breath or pleurisy. He does have chronic cough denies any fevers or chills. Results of right popliteal vein DVT was discussed by ER provider with Dr. Perez recommendations for patient to be started on anticoagulation with IV heparin drip. HOSPITAL COURSE Patient admitted under hospitalist service and monitored closely. Patient is kept on heparin IV drip, transition to Xarelto per Cardiology recommendation, oncology consultation requested, however the patient does not want to wait to see oncologist while in the hospital, he already made an appointment to see Rafael as an outpatient tomorrow. At the time of my visit alert oriented x3, hemodynamically stable, plan to discharge patient home. Third Rigger(s): Cardiology Assessment/Plan: Final diagnosis Acute DVT involving the popliteal vein of the right lower extremity, POA History of lumbar spinal stenosis with chronic lower back pain, POA BPH, POA Discharge Instructions: Patient to follow up with primary care physician, Cardiology and Hematology as an outpatient, return to hospital if condition changes, patient agreed with plan and understood the information provided Home Medications: Active Scripts Rivaroxaban (Xarelto) 20 Mg Tablet, 1 TAB PO DAILY for 30 Days, #30 TAB 6 Refills with food Prov:DENNISE CASAREZ MD 12/13/24 Rivaroxaban (Xarelto) 15 Mg Tablet, 1 TAB PO BID for 21 Days, #42 TAB 0 Refills Prov:DENNISE CASAREZ MD 12/13/24 Reported Medications Dutasteride (Dutasteride) 0.5 Mg Capsule, 0.5 MG PO HS, CAP 09/07/22 Tamsulosin HCl (Flomax) 0.4 Mg Cap.er.24h, 0.4 MG PO HS, CAPSULE. 09/07/22 Gabapentin (Neurontin) 300 Mg Capsule, 300 MG PO HS, CAP 09/07/22 Time spent arranging discharge: 31-60 minutes DENNISE CASAREZ MD Dec 13, 2024 14:13
[2024-12-13] MEDS ORDERED: (Dutasteride 0.5 MG) PO SCH (21:00)
== END 2024-12-13 11:30 | disposition home or self-care (01) ==
LOC: EDH 15:27 → EDHIP 16:21 → INTOOBSV 16:21 → 2AH 21:16
PROVIDERS: ADMIT Internal Medicine; ATTEND Internal Medicine
DX: I82.431 Acute embolism and thrombosis of right popliteal vein (principal); N40.0 Benign prostatic hyperplasia without lower urinary tract symptoms; M48.061 Spinal stenosis, lumbar region without neurogenic claudication; G89.29 Other chronic pain; M54.59 Other low back pain; M79.89 Other specified soft tissue disorders; Z79.899 Other long term (current) drug therapy; Z98.890 Other specified postprocedural states
CPT/HCPCS: 96374; 96375; 99284; 83735; 80053; 85025; 85610 ×2; 85730 ×3; 86850; 86900; 86901; 36415 ×2; 71045; 93970; 96376; 80048; 85027; G0378 ×19; J3490 ×2; J1644 ×2; 99285

== ENCOUNTER → 2024-12-12 | Outpatient (CLI) | payer MEDICARE ==
[~2024-12-12] MED LIST changes: -GADOTERATE MEGLUMINE 10 MMOL/20 ML VIAL IV ONE; +RIVA15TA PO; +RIVA20TA PO
--- NOTE | 2024-12-12 15:44 | HMCIMG ---
US VENOUS DOPPLER BILATERAL REASON: LEG SWELLING COMPARISON: None Technique: Bilateral venous doppler ultrasound was performed with spectral analysis and color flow imaging technique. FINDINGS: There is a deep vein thrombosis involving the right popliteal vein. There is a normal appearance of the common femoral, deep femoral, the profunda femoris and left popliteal veins. Proximal calf veins appear normal as well. There is normal response to compression and augmentation. There is no evidence of deep venous thrombosis. IMPRESSION: Deep vein thrombosis of the right popliteal vein The remaining right lower extremity has no other clot seen The left leg has no evidence of deep vein thrombosis.
--- NOTE | 2024-12-12 15:48 | ERN ---
ED Note History of Present Illness Stated Complaint: SWOLLEN LEG Dictation: PATIENT IS A 74-YEAR-OLD MALE COMING IN FROM OFFICE WITH SWELLING TO HIS RIGHT LEG FOR THE LAST TWO DAYS AND A DVT. REVIEW OF ULTRASOUND REPORT SHOWS HE HAS A DVT IN THE POPLITEAL VEIN. SENT TO THE EMERGENCY ROOM FOR FURTHER EVALUATION AND TREATMENT BY GENERAL [employer]. DISTAL NEUROVASCULAR CMS INTACT RIGHT LEG. ERYTHEMA. Allergies: Coded Allergies: No Known Drug Allergies (Unverified Allergy, Unknown, 09/07/22) Home Meds Reported Medications Dutasteride (Dutasteride) 0.5 Mg Capsule, 0.5 MG PO HS, CAP 09/07/22 Tamsulosin HCl (Flomax) 0.4 Mg Cap.er.24h, 0.4 MG PO HS, CAPSULE. 09/07/22 Gabapentin (Neurontin) 300 Mg Capsule, 300 MG PO HS, CAP 09/07/22 Past Medical History RN Note Reviewed/Agreed w/PFSH: Yes Review of System Dictation CONSTITUTIONAL: NEGATIVE EXCEPT FOR HPI HEAD/FACE: NEGATIVE EXCEPT FOR HPI EENT: NEGATIVE EXCEPT FOR HPI RESPIRATORY: NEGATIVE EXCEPT FOR HPI GASTROINTESTINAL/ABDOMINAL: NEGATIVE EXCEPT FOR HPI GENITOURINARY: NEGATIVE EXCEPT FOR HPI MUSCULOSKELETAL: NEGATIVE EXCEPT FOR HPI RIGHT LEG AND CALF SWELLING INTEGUMENTARY: NEGATIVE EXCEPT FOR HPI NEUROLOGICAL/PSYCH: NEGATIVE EXCEPT FOR HPI HEMATOLOGIC/LYMPHATIC: NEGATIVE EXCEPT FOR HPI ALL SYSTEMS NEGATIVE, EXCEPT NOTED ABOVE. 13 POINT REVIEW OF SYSTEMS ASSESSED AND ALL NEGATIVE EXCEPT FOR ABOVE. Physical Exam Dictation VITAL SIGNS REVIEWED GENERAL APPEARANCE: ALERT, ORIENTED X 3, NO ACUTE DISTRESS, WELL DEVELOPED, NOURISHED. NO PAIN AT THIS TIME. HEAD AND FACE: NON-TRAUMATIC. EYES: PERRL, PINK CONJUNCTIVAS, EYELID NO TRAUMA, ANTERIOR CHAMBER WITH ARCUS SENILIS. EARS: PINNAS INTACT AND NO SIGNS OF TRAUMA OR ERYTHEMA EAR CANALS CLEAR AND NO DISCHARGE TM NO ERYTHEMA NOSE: NO DISCHARGE, NO BLEEDING. OROPHARYNX: MOUTH NORMAL, TONGUE PINK, PHARYNX CLEAR,NO ERYTHEMA, TONSILS NO EXUDATES, NO ABSCESSES NOTED, MUCOUS M EMBRANE MOIST NECK: SUPPLE, NON-TENDER, NO THYROMEGALY, NO MASSES, NO JVD, NO BRUITS BREAST:DEFERRED CHEST:NO TENDERNESS, NO CREPITUS, NO PARADOXICAL MOVEMENT, NO RETRACTIONS LUNGS:CLEAR, WELL-VENTILATED, SYMMETRIC, NO RALES, NO WHEEZING, NO RHONCHI, NO STRIDOR, GOOD BREATH SOUNDS BILATERALLY HEART: REGULAR RATE, REGULAR RHYTHM, NO MURMUR, NO GALLOPS VASCULAR: NO PERIPHERAL EDEMA, ABDOMEN: SOFT, POSITIVE BOWEL SOUNDS, NONDISTENDED, NO GUARDING, NONTENDER, NO REBOUND, NO MASSES NO HEPATOMEGALY, NO SPLENOMEGALY, NO KATZ'S SIGN, NO HERNIAS. RECTAL: DEFERRED GENITAL: DEFERRED NEUROLOGICAL: NORMAL SPEECH, MOTOR FUNCTION INTACT, SENSORY FUNCTION INTACT MUSCULOSKELETAL: NECK NONTENDER, FULL RANGE OF MOTION, BACK NONTENDER, FULL RANGE OF MOTION, EXTREMITIES: RIGHT CALF SWELLING TENDERNESS. DISTAL NEUROVASCULAR CMS INTACT LEG IS WARM TO TOUCH, NO ERYTHEMA SKIN: COLOR PINK, DRY, NO TURGOR, NO RASH, NO LACERATIONS, NO ABRASIONS, NO CONTUSIONS. LYMPHATIC: DEFERRED Results (Laboratory/Radiology) Laboratory/Radiology DOPPLER ULTRASOUND RIGHT LEG DEMONSTRATES POPLITEAL VEIN DVT. NEGATIVE FV NEG SFV Labs Reviewed?: Yes ED Course ED Course Orders Marcelle/DR ALLEGRA ANTONIO Procedure Category Date Status Time Us Venous Doppler US 12/12/24 Resulted Bilateral DX & DISP Departure Condition: Stable Referrals: CECI RINALDI MD (PCP) BETTY MENENDEZ NP Dec 12, 2024 15:48
== END | disposition home or self-care (01) ==
LOC: RAH 14:37
PROVIDERS: ATTEND Pediatrics Neonatal-Perinatal Medicine
DX: I82.431 Acute embolism and thrombosis of right popliteal vein (principal); M79.89 Other specified soft tissue disorders; R60.0 Localized edema
CPT/HCPCS: 93970